=== PATIENT | male | born 1945 | race Caucasian/White ===

== ENCOUNTER 2016-08-24 20:49 | Emergency (ER) | payer SELFPAY ==
[~2016-08-24] VITALS: Ht 170.2 cm; Wt 84.5 kg
[2016-08-24 20:54] VITALS: BP 154/94
[2016-08-24] MEDS ORDERED: FAMOTIDINE 20 MG TABLET ONE (21:44)
[2016-08-24] MEDS ORDERED: ONDANSETRON ODT 4 MG ONE (21:44)
[2016-08-24] MEDS ORDERED: MAALOX/HYOSCYAMINE/LIDOCAINE 45 ML BOTTLE ONE (21:45)
[2016-08-24] MEDS ORDERED: ONDANSETRON ODT 4 MG PO ONE (22:00)
[2016-08-24] MEDS ORDERED: MAALOX/HYOSCYAMINE/LIDOCAINE 45 ML BOTTLE PO ONE (22:00)
[2016-08-24] MEDS ORDERED: FAMOTIDINE 20 MG TABLET PO ONE (22:00)
== END 2016-08-24 23:03 | disposition home or self-care (01) ==
LOC: ED 21:58
DX: R10.13 Epigastric pain (principal); K21.9 Gastro-esophageal reflux disease without esophagitis; Z85.51 Personal history of malignant neoplasm of bladder
CPT/HCPCS: 99284; Q0162